=== PATIENT | female | born 1995 | race African-American/Black ===

== ENCOUNTER 2019-04-19 13:50 | Emergency (ER) | payer OTHER ==
[2019-04-19 13:57] VITALS: BP 126/79; PULSE 74; TEMP 98.7; BMI 31.4
--- NOTE | 2019-04-19 14:05 | PDOC ---
History of Present Illness - General Chief Complaint: Toothache Stated Complaint: LEFT FACE SWELLING Time Seen by Provider: 04/19/19 13:51 History Source: Patient Exam Limitations: No Limitations - History of Present Illness Initial Comments: 04/19/19 14:00 23 y/o female with left facial swelling that started today. Has not taken anything. Noted that teeth are painful. Denies fever, chills, sore throat, or difficulty swallowing. No SOB or chest pain. Is this a multiple visit Asthma Patient?: No Severity: mild Past History - Past Medical History Allergies/Adverse Reactions: Allergies Allergy/AdvReac Type Severity Reaction Status Date / Time No Known Allergies Allergy Verified 04/19/19 13:51 Home Medications: Ambulatory Orders Amox-Tr/K Cl [Augmentin - 875Mg Tablet] 1 tab PO BID #14 tablet 04/19/19 COPD: No - Psycho Social/Smoking Cessation Hx Smoking History: Never smoked Hx Alcohol Use: Yes (OCASIONAL) Drug/Substance Use Hx: No Review of Systems - Review of Systems Able to Perform ROS?: Yes Is the patient limited Maltese proficient: No Constitutional: No: Chills, Fever HEENTM: Yes: Mouth Pain, Dental Problems. No: Throat Pain Respiratory: No: Cough, Shortness of Breath ABD/GI: No: Nausea, Vomiting Integumentary: No: Bruising All Other Systems: Reviewed and Negative *Physical Exam - Vital Signs Last Vital Signs Temp Pulse Resp BP Pulse Ox 98.7 F 74 16 126/79 100 04/19/19 13:50 04/19/19 13:50 04/19/19 13:50 04/19/19 13:50 04/19/19 13:50 - Physical Exam General Appearance: Yes: Nourished, Appropriately Dressed. No: Apparent Distress HEENT: positive: EOMI, Normal Voice, Symmetrical, Pharynx Normal. negative: Normal ENT Inspection (left facial swelling, no tenesmus, no redness, poor dentition, no fluctuance) Neck: positive: Trachea midline, Normal Thyroid, Supple. negative: Tender, Rigid, Lymphadenopathy (R), Lymphadenopathy (L) Respiratory/Chest: positive: Lungs Clear, Normal Breath Sounds. negative: Chest Tender, Respiratory Distress Cardiovascular: positive: Regular Rhythm, Regular Rate, S1, S2. negative: Edema , JVD, Murmur Vascular Pulses: Femoral (R): 4+, Femoral (L): 4+, Carotid (R): 4+, Carotid (L) : 4+, Dorsalis-Pedis (R): 4+, Doralis-Pedis (L): 4+ Gastrointestinal/Abdominal: positive: Normal Bowel Sounds, Flat, Soft. negative : Tender, Organomegaly Lymphatic: negative: Adenopathy, Tenderness, Other Musculoskeletal: positive: Normal Inspection. negative: CVA Tenderness Extremity: positive: Normal Capillary Refill, Normal Inspection, Normal Range of Motion Integumentary: positive: Normal Color, Dry, Warm Neurologic: positive: lab manager II-XII NML intact, Fully Oriented, Alert, Normal Mood/ Affect, Normal Response, Motor Strength 5/ ED Treatment Course - ADDITIONAL ORDERS Additional order review: 04/19/19 14:05 Left facial swelling/dental pain Will place on Augmentin and Motrin Follow up with Dentist If worsen return to ER Discharge - Discharge Information Problems reviewed: Yes Clinical Impression/Diagnosis: Facial swelling Condition: Stable Disposition: HOME - Admission No - Follow up/Referral - Patient Discharge Instructions Patient Printed Discharge Instructions: DI for Tooth Abscess Additional Instructions: Ice, Motrin, rest Augmentin 875 mg 2x/day for 7 days Follow up with Dentist If worsen return to ER - Post Discharge Activity
== END 2019-04-19 14:16 | disposition home or self-care (01) ==
LOC: FER 13:50
DX: R22.0 Localized swelling, mass and lump, head (principal)
CPT/HCPCS: 99281-25

== ENCOUNTER 2021-02-21 17:25 | Emergency (ER) | payer SELFPAY ==
[2021-02-21 17:50] VITALS: BP 124/95; PULSE 97; TEMP 98.2; BMI 25.7
[2021-02-21] MEDS ORDERED: SODIUM CHLORIDE 0.9% 500 ML INFUS.BAG IV ONE (17:54)
[2021-02-21] MEDS ORDERED: METOCLOPRAMIDE HCL INJECTION 10 MG/2 ML VIAL IVPUSH ONE (17:59)
[2021-02-21] MEDS ORDERED: METOCLOPRAMIDE HCL INJECTION 10 MG/2 ML VIAL ONE (18:33)
[2021-02-21 18:59] LABS: BILIRUBIN,TOTAL 1.2 mg/dl (0.2-1); CALCIUM 9.6 mg/dl (8.5-10); CREATININE 0.9 mg/dl (0.55-1.3); TOT PROT 8.7 g/dl (6.4-8.2)
[2021-02-21 19:09] LABS: RBC 5.07 M/mm3 (3.60-5.2); RDW 15.3 % (11.6-15.6)
[2021-02-21 19:12] LABS: HEMATOCRIT 40.6 % (32.4-45.2); HEMOGLOBIN 13.1 GM/dl (10.7-15.3); MCH 25.8 pg (25.7-33.7); MCHC 32.2 g/dl (32.0-36.0); MEAN CELL VOLUME 80.1 fl (80-96); PLATELET COUNT 159 10^3/uL (134-434); WHITE BLOOD COUNT 4.9 K/mm3 (4.0-10.8)
[2021-02-21 20:07] LABS: ANISOCYTOSIS 1+; MACROCYTOSIS 1+
[2021-02-21 20:08] LABS: PLATELET ESTIMATE ADEQUATE
== END 2021-02-21 19:53 | disposition home or self-care (01) ==
LOC: FER 17:25
PROC: 3E033GC Introduction of Other Therapeutic Substance into Peripheral Vein, Percutaneous Approach (ICD-10-PCS; principal; 2021-02-21)
DX: R11.11 Vomiting without nausea (principal)
CPT/HCPCS: 36415; 80053; 84703; 85025; 99284-25

== ENCOUNTER 2022-10-06 22:00 | Emergency (ER) | payer OTHER ==
[2022-10-06 22:18] VITALS: BP 128/70; PULSE 82; RESP 16; TEMP 98.7; BMI 31.6
[2022-10-06 22:18] LABS: HCG,QUALITATIVE URINE Positive
[2022-10-06 22:22] LABS: EPITHELIAL CELLS FEW /hpf
[2022-10-06] MEDS ORDERED: ONDANSETRON *ODT* 4 MG TABLET SL ONE (22:35)
[2022-10-06] MEDS ORDERED: ONDANSETRON *ODT* 4 MG TABLET ONE (22:39)
== END 2022-10-06 22:41 | disposition home or self-care (01) ==
LOC: FER 22:00
DX: O21.0 Mild hyperemesis gravidarum (principal); Z3A.01 Less than 8 weeks gestation of pregnancy
CPT/HCPCS: 81003; 81015; 84703; 99283-25; Q0162

== ENCOUNTER 2023-05-22 18:47 | Inpatient (IN) | payer OTHER ==
[2023-05-22] MEDS ORDERED: ELECTROLYTE-148 SOLN 1,000 ML IV SCH (19:30)
[2023-05-22 20:42] LABS: BASO % 0.2 % (0-2.0); EOS % 0.1 % (0-4.5); HEMATOCRIT 37.4 % (32.4-45.2); HEMOGLOBIN 12.3 GM/dL (10.7-15.3); LYMPH % 19.5 % (8-40); MCH 28.1 pg (25.7-33.7); MEAN CELL VOLUME 85.1 fl (80-96); MONO % 7.4 % (3.8-10.2); NEUT % 72.8 % (42.8-82.8); RBC 4.39 M/mm3 (3.60-5.2); WHITE BLOOD COUNT 7.4 K/mm3 (4.0-10.0)
[2023-05-22] MEDS: ELECTROLYTE-148 SOLN 1,000 ML IV SCH (21:00)
[2023-05-22 21:05] LABS: POTASSIUM 3.7 mmol/L (3.5-5.1)
[2023-05-22 21:06] LABS: CALCIUM 8.8 mg/dL (8.5-10.1)
[2023-05-22 21:07] LABS: BLOOD UREA NITROGEN 4.7 mg/dL (7-18)
[2023-05-22 21:10] LABS: CREATININE 0.7 mg/dL (0.55-1.3)
[2023-05-22 21:44] VITALS: BMI 38.9
[2023-05-22 21:47] LABS: MEAN PLT VOLUME 10.1 fl (7.5-11.1); PLATELET COUNT 111 10^3/uL (134-434)
[2023-05-22 22:15] LABS: INR 0.9 (0.83-1.09); PROTHROMBIN TIME (PATIENT) 10.5 SEC (9.7-13.0)
[2023-05-22 22:17] LABS: ACTIVATED PTT 25.1 SECONDS (25.2-36.5)
[2023-05-23] MEDS ORDERED: ACETAMINOPHEN 1000 MG/100 ML BAG IVPB ONE (03:30)
[2023-05-23] MEDS ORDERED: AMPICILLIN - 2 GM in SODIUM CHLORIDE 100 ML IVPB ONE (04:00)
[2023-05-23] MEDS ORDERED: AMPICILLIN SODIUM 2 GM VIAL ONE (04:14)
[2023-05-23] MEDS ORDERED: ACETAMINOPHEN INJECTION 100 ML IVPB ONE (04:14)
[2023-05-23] MEDS ORDERED: SODIUM CHLORIDE 500 ML IV ONE (04:15)
[2023-05-23] MEDS: ELECTROLYTE-148 SOLN 1,000 ML IV SCH (05:35)
[2023-05-23] MEDS ORDERED: OXYTOCIN 20 UNITS in 0.9% NS 20 UNIT/1,000 ML INFUS.BAG IV ONE (07:14)
[2023-05-23] MEDS ORDERED: LIDOCAINE HCL 1% PRESERVATIVE FREE - 30ML VIAL ONE (07:14)
[2023-05-23 08:42] LABS: CORD BASE EXCESS -5.3 mmol/L (0-2); CORD HCO3 22.6 mmHg (20-29); CORD PCO2 52.9 mmHg (30-78); CORD pH 7.249 (7.14-7.44)
[2023-05-23 08:43] LABS: CORD BASE EXCESS -7.1 mmol/L (0-2); CORD HCO3 24.1 mmHg (20-29); CORD PCO2 75.8 mmHg (30-78); CORD pH 7.121 (7.14-7.44)
[2023-05-23] MEDS ORDERED: BENZOCAINE 28 GM HEMORRHOIDAL OINTMENT TP PRN (09:02)
[2023-05-23] MEDS ORDERED: ACETAMINOPHEN 325 MG TABLET (FP) PO PRN (09:02)
[2023-05-23] MEDS ORDERED: oxyCODONE HCL 5 MG TABLET PO PRN (09:02)
[2023-05-23] MEDS ORDERED: BENZOCAINE 20% 57 GM BOTTLE TP PRN (09:02)
[2023-05-23] MEDS ORDERED: IBUPROFEN 600 MG TABLET (FP) PO PRN (09:02)
[2023-05-23] MEDS ORDERED: WITCH HAZEL 50% (TUCKS) 40 PAD/JAR PAD TP PRN (09:02)
[2023-05-23] MEDS ORDERED: BISACODYL 10 MG SUPP.RECT RC PRN (09:02)
[2023-05-23] MEDS ORDERED: METHYLERGONOVINE MALEATE 0.2 MG/1 ML AMP IM PRN (09:02)
[2023-05-23] MEDS ORDERED: OXYTOCIN 20 UNITS in 0.9% NS 20 UNIT/1,000 ML INFUS.BAG IV SCH (09:15)
[2023-05-23 14:14] LABS: POC NITRAZINE POS
[2023-05-23] MEDS: PRENATAL VITAMINS W/ FOLIC ACID TABLET (FP) PO SCH (16:56)
[2023-05-23] MEDS: AMPICILLIN - 1 GM in SODIUM CHLORIDE 100 ML IVPB SCH (16:56)
[2023-05-24 09:13] LABS: BASO % 0.3 % (0-2.0); HEMATOCRIT 33.4 % (32.4-45.2); HEMOGLOBIN 10.5 GM/dL (10.7-15.3); LYMPH % 11.9 % (8-40); MCH 27.5 pg (25.7-33.7); MCHC 31.2 g/dl (32.0-36.0); MEAN PLT VOLUME 10.1 fl (7.5-11.1); MONO % 8.2 % (3.8-10.2); NEUT % 79.6 % (42.8-82.8); PLATELET COUNT 93 10^3/uL (134-434); RDW 14.6 % (11.6-15.6); WHITE BLOOD COUNT 14.1 K/mm3 (4.0-10.0)
[2023-05-24] MEDS: PRENATAL VITAMINS W/ FOLIC ACID TABLET (FP) PO SCH (09:20)
[2023-05-24] MEDS ORDERED: SENNOSIDES/DOCUSATE COMBO (SENNA PLUS) TABLET (UD) PO PRN (22:00)
[2023-05-25] MEDS: PRENATAL VITAMINS W/ FOLIC ACID TABLET (FP) PO SCH (10:32)
[2023-05-25 12:14] VITALS: BP 118/87; PULSE 76; RESP 16; TEMP 98.7
== END 2023-05-25 12:05 | disposition home or self-care (01) | DRG 807 ==
LOC: JDEL 18:47 → JLDR 19:30 → J3W 05-23 10:35
PROVIDERS: ADMIT Obstetrics & Gynecology; ATTEND Obstetrics & Gynecology
PROC: 10E0XZZ Delivery of Products of Conception, External Approach (ICD-10-PCS; principal; 2023-05-23)
PROC: 0KQM0ZZ Repair Perineum Muscle, Open Approach (ICD-10-PCS; 2023-05-23)
PROC: 0W8NXZZ Division of Female Perineum, External Approach (ICD-10-PCS; 2023-05-23)
PROC: 0UQMXZZ Repair Vulva, External Approach (ICD-10-PCS; 2023-05-23)
DX: O34.13 Maternal care for benign tumor of corpus uteri, third trimester (principal); Z37.0 Single live birth; O42.02 Full-term premature rupture of membranes, onset of labor within 24 hours of rupture; D25.2 Subserosal leiomyoma of uterus; O70.1 Second degree perineal laceration during delivery; O70.0 First degree perineal laceration during delivery; Z3A.38 38 weeks gestation of pregnancy
CPT/HCPCS: 36415; 36600; 59025; 80048; 82803; 83986-QW; 85025; 85610; 85730; 86780; 86850; 86900; 86901

== ENCOUNTER 2024-04-16 06:43 | Inpatient (IN) | payer OTHER ==
[2024-04-16] MEDS ORDERED: BUTORPHANOL TARTRATE 2 MG/ML VIAL IVPUSH PRN (07:28)
[2024-04-16] MEDS: ELECTROLYTE-148 SOLN 1,000 ML IV SCH (07:30)
[2024-04-16 08:25] VITALS: BMI 39.7
[2024-04-16] MEDS ORDERED: OXYTOCIN 30 UNITS in 0.9% NS 30 UNIT/500 ML INFUS.BAG IVPB ONE (08:28)
[2024-04-16] MEDS: OXYTOCIN 30 UNITS in 0.9% NS 30 UNIT/500 ML INFUS.BAG IVPB SCH (08:35)
[2024-04-16 09:20] LABS: BASO % 0.3 % (0-2.0); HEMATOCRIT 38.1 % (32.4-45.2); HEMOGLOBIN 12.3 GM/dL (10.7-15.3); LYMPH % 22.7 % (8-40); MCH 27.3 pg (25.7-33.7); MCHC 32.4 g/dl (32.0-36.0); MEAN CELL VOLUME 84.4 fl (80-96); MEAN PLT VOLUME 10.3 fl (7.5-11.1); MONO % 9.1 % (3.8-10.2); NEUT % 66.9 % (42.8-82.8); PLATELET COUNT 91 10^3/uL (134-434); RBC 4.52 M/mm3 (3.60-5.2); RDW 13.9 % (11.6-15.6); WHITE BLOOD COUNT 4.5 K/mm3 (4.0-10.0)
[2024-04-16 09:32] LABS: INR 0.88 (0.83-1.09)
[2024-04-16 09:47] LABS: PLATELET ESTIMATE DECREASED
[2024-04-16 09:49] LABS: POTASSIUM 3.6 mmol/L (3.5-5.1)
[2024-04-16 09:50] LABS: CALCIUM 8.6 mg/dL (8.5-10.1)
[2024-04-16 09:51] LABS: BLOOD UREA NITROGEN 4.8 mg/dL (7-18)
[2024-04-16 09:54] LABS: CREATININE 0.5 mg/dL (0.55-1.3)
[2024-04-16 13:38] LABS: HIV INTERPRETATION NEGATIVE (NEGATIVE)
[2024-04-16 14:18] LABS: SYPHILIS W/ RPR CONF NON-REACTIVE (NONREACTIVE)
[2024-04-16] MEDS ORDERED: BUTORPHANOL TARTRATE 2 MG/ML VIAL ONE (15:49)
[2024-04-16] MEDS ORDERED: PROMETHAZINE HCL 25 MG/1 ML VIAL ONE ×2 (15:49→15:56)
[2024-04-16 15:56] LABS: BASO % 0.2 % (0-2.0); HEMATOCRIT 42.3 % (32.4-45.2); LYMPH % 29.5 % (8-40); MCH 28.1 pg (25.7-33.7); MCHC 33.1 g/dl (32.0-36.0); MEAN CELL VOLUME 84.8 fl (80-96); MEAN PLT VOLUME 10.4 fl (7.5-11.1); MONO % 7.9 % (3.8-10.2); NEUT % 61.4 % (42.8-82.8); PLATELET COUNT 90 10^3/uL (134-434); RBC 4.99 M/mm3 (3.60-5.2); RDW 14.2 % (11.6-15.6)
[2024-04-16] MEDS ORDERED: BUTORPHANOL TARTRATE 1 MG/ML VIAL ONE (15:56)
[2024-04-16 15:57] LABS: RETICULOCYTES 1.44 % (0.5-1.5)
[2024-04-16] MEDS: PROMETHAZINE HCL 25 MG/1 ML VIAL IVPB ONE (16:00)
[2024-04-16] MEDS: BUTORPHANOL TARTRATE 2 MG/ML VIAL IVPB ONE (16:00)
[2024-04-16] MEDS ORDERED: LIDOCAINE HCL 1% PRESERVATIVE FREE - 30ML VIAL ONE (16:26)
[2024-04-16] MEDS ORDERED: OXYTOCIN 20 UNITS in 0.9% NS 20 UNIT/1,000 ML INFUS.BAG IV ONE (16:26)
[2024-04-16 16:31] LABS: URIC ACID 4.6 mg/dL (2.6-7.2)
[2024-04-16] MEDS ORDERED: MISOPROSTOL 200 MCG TABLET ONE (16:38)
[2024-04-16] MEDS: OXYTOCIN 20 UNITS in 0.9% NS 20 UNIT/1,000 ML INFUS.BAG IV SCH (16:45)
[2024-04-16 16:55] LABS: CORD BASE EXCESS -5.2 mmol/L (0-2); CORD HCO3 21.1 mmHg (20-29); CORD PCO2 43.5 mmHg (30-78); CORD pH 7.303 (7.14-7.44)
[2024-04-16] MEDS ORDERED: BENZOCAINE 28 GM HEMORRHOIDAL OINTMENT TP PRN (16:59)
[2024-04-16] MEDS ORDERED: oxyCODONE HCL 5 MG TABLET PO PRN (16:59)
[2024-04-16] MEDS ORDERED: BENZOCAINE 20% 57 GM BOTTLE TP PRN (16:59)
[2024-04-16] MEDS ORDERED: ACETAMINOPHEN 325 MG TABLET (FP) PO PRN (16:59)
[2024-04-16] MEDS ORDERED: BISACODYL 10 MG SUPP.RECT RC PRN (16:59)
[2024-04-16] MEDS ORDERED: METHYLERGONOVINE MALEATE 0.2 MG/1 ML AMP IM PRN (16:59)
[2024-04-16] MEDS ORDERED: IBUPROFEN 600 MG TABLET (FP) PO PRN (16:59)
[2024-04-16] MEDS ORDERED: WITCH HAZEL 50% (TUCKS) 40 PAD/JAR PAD TP PRN (16:59)
[2024-04-16 18:24] VITALS: RESP 18
[2024-04-17 07:24] LABS: BASO % 0.3 % (0-2.0); EOS % 0.6 % (0-4.5); HEMATOCRIT 36.2 % (32.4-45.2); HEMOGLOBIN 12.1 GM/dL (10.7-15.3); LYMPH % 22.8 % (8-40); MCH 28.6 pg (25.7-33.7); MCHC 33.6 g/dl (32.0-36.0); MEAN CELL VOLUME 85.3 fl (80-96); MEAN PLT VOLUME 11.1 fl (7.5-11.1); MONO % 7.6 % (3.8-10.2); NEUT % 68.7 % (42.8-82.8); PLATELET COUNT 91 10^3/uL (134-434); RBC 4.24 M/mm3 (3.60-5.2); RDW 13.9 % (11.6-15.6); WHITE BLOOD COUNT 8.9 K/mm3 (4.0-10.0)
[2024-04-17] MEDS ORDERED: SENNOSIDES/DOCUSATE COMBO (SENNA PLUS) TABLET (UD) PO PRN (22:00)
[2024-04-18 07:50] LABS: BASO % 0.5 % (0-2.0); EOS % 0.7 % (0-4.5); HEMATOCRIT 36.6 % (32.4-45.2); HEMOGLOBIN 11.8 GM/dL (10.7-15.3); LYMPH % 32.2 % (8-40); MCH 27.9 pg (25.7-33.7); MCHC 32.3 g/dl (32.0-36.0); MEAN CELL VOLUME 86.5 fl (80-96); MEAN PLT VOLUME 10.4 fl (7.5-11.1); MONO % 7.2 % (3.8-10.2); NEUT % 59.4 % (42.8-82.8); PLATELET COUNT 94 10^3/uL (134-434); RBC 4.23 M/mm3 (3.60-5.2); WHITE BLOOD COUNT 7.7 K/mm3 (4.0-10.0)
[2024-04-18 10:02] VITALS: BP 132/84; PULSE 75; TEMP 98.4
== END 2024-04-18 13:00 | disposition home or self-care (01) | DRG 807 ==
LOC: JLDR 06:43 → J3W 19:52
PROVIDERS: ADMIT Obstetrics & Gynecology; ATTEND Obstetrics & Gynecology
PROC: 10E0XZZ Delivery of Products of Conception, External Approach (ICD-10-PCS; principal; 2024-04-16)
PROC: 0HQ9XZZ Repair Perineum Skin, External Approach (ICD-10-PCS; 2024-04-16)
PROC: 0W8NXZZ Division of Female Perineum, External Approach (ICD-10-PCS; 2024-04-16)
DX: O99.12 Other diseases of the blood and blood-forming organs and certain disorders involving the immune mechanism complicating childbirth (principal); D69.6 Thrombocytopenia, unspecified; O48.0 Post-term pregnancy; O99.214 Obesity complicating childbirth; O70.0 First degree perineal laceration during delivery; Z3A.40 40 weeks gestation of pregnancy; Z37.0 Single live birth
CPT/HCPCS: 36415; 36600; 59409; 80048; 82570; 82803; 82977; 83010; 84156; 84450; 84460; 84550; 85025; 85032; 85045; 85610; 86780; 86803; 86850; 86900; 86901; 87389